=== PATIENT | female | born 1975 | race Caucasian/White ===

== ENCOUNTER → 2017-04-27 | Outpatient (CLI) | payer MEDICAID ==
--- NOTE | 2017-04-27 14:26 | RADIOLOGY REPORT (SQ) ---
EXAM DESCRIPTION: U/S EXTREMITY NONVASCULAR LTD COMPLETED DATE/TIME: 04/27/2017 1:44 pm REASON FOR STUDY: INTRA-ABD AND PELVIC SWELLING MASS AND LUMP (R19.00) R19.00 INTRA-ABD AND PELVIC SWELLING, MASS AND LUMP, UNSP SI COMPARISON: None. TECHNIQUE: Static and real time louis scale ultrasound Doppler spectral analysis, and color Doppler a cquired along the right lower quadrant anterior abdominal wall LIMITATIONS: None. FINDINGS: Patient has ecchymosis over the right lower quadrant anterior abdominal wall fat. Deep to the ecchymosis, an irregularly-shaped hypoechoic hematoma is present measuring about 4 x 1 x 2 cm in size. There is an adjacent hypoechoic lymph node of doubtful clinical significance 1.1 x 1 x 0.8 cm in size. IMPRESSION: Irregularly-shaped anterior abdominal wall right lower quadrant hematoma in the abdomina l wall fat, 4 x 1 x 2 cm in size. Incidental adjacent lymph node of doubtful clinical significance TECHNICAL DOCUMENTATION: JOB ID: [id number] [employer]- All Rights Reserved
== END ==
LOC: RAD 12:52
PROVIDERS: ATTEND Nurse Practitioner Family
DX: R19.00 Intra-abdominal and pelvic swelling, mass and lump, unspecified site (principal)
CPT/HCPCS: 76882

== ENCOUNTER 2019-02-03 08:03 | Emergency (ER) | payer MEDICAID ==
[2019-02-03] MEDS ORDERED: DEXAMETHASONE 4 MG TABLET PO ONE (09:40)
[2019-02-03] MEDS ORDERED: ONDANSETRON 4 MG TAB.RAPDIS PO ONE (09:41)
[2019-02-03] MEDS ORDERED: LIDOCAINE 2% VISCOUS SOLN 20 ML UDCUP PO ONE (09:41)
--- NOTE | 2019-02-03 09:42 | ER Document Report ---
HPI - HPI Patient complains to provider of: Sore throat Time Seen by Provider: 02/03/19 09:13 Onset/Duration: Persistent Quality of pain: Achy Pain Level: 4 Context: Patient presents complaining of sore throat for the past 5 days with subjective fever at home. Patient does complain of ear pain. Patient reports nausea and vomiting Associated Symptoms: Vomiting, Sore throat. denies: Nonproductive cough, Productive cough, Earache, Fever Exacerbated by: Denies Relieved by: Denies Similar symptoms previously: No Recently seen / treated by doctor: No - ROS ROS below otherwise negative: Yes Systems Reviewed and Negative: Yes All other systems reviewed and negative - CONSTITUTIONAL Constitutional: REPORTS: Fever - Subjective. DENIES: Chills - EENT EENT: REPORTS: Sore Throat, Ear Pain. DENIES: Eye problems - NEURO Neurology: DENIES: Headache - CARDIOVASCULAR Cardiovascular: DENIES: Chest pain - RESPIRATORY Respiratory: DENIES: Trouble Breathing, Coughing - GASTROINTESTINAL Gastrointestinal: REPORTS: Nausea, Patient vomiting. DENIES: Abdominal Pain, Diarrhea - URINARY Urinary: DENIES: Dysuria, Urgency, Frequency - REPRODUCTIVE Reproductive: DENIES: : - MUSCULOSKELETAL Musculoskeletal: DENIES: Extremity pain - DERM Skin Color: Normal Skin Problems: None Past Medical History - General Information source: Patient - Social History Smoking Status: Never Smoker Chew tobacco use (# tins/day): No Frequency of alcohol use: None Drug Abuse: None Occupation: None Family History: Reviewed & Not Pertinent Patient has suicidal ideation: No Patient has homicidal ideation: No - Medical History Medical History: Negative Renal/ Medical History: Denies: Hx Peritoneal Dialysis Past Surgical History: Reports: Hx Cholecystectomy Vertical Provider Document - CONSTITUTIONAL Agree With Documented VS: Yes Exam Limitations: No Limitations General Appearance: WD/WN, No Apparent Distress - INFECTION CONTROL TRAVEL OUTSIDE OF THE [place] IN LAST 30 DAYS: No - HEENT HEENT: Pharyngeal Exudate, Pharyngeal Tenderness, Pharyngeal Erythema - NECK Neck: Lymphadenopathy-Left, Lymphadenopathy-Right - RESPIRATORY Respiratory: Breath Sounds Normal, No Respiratory Distress - CARDIOVASCULAR Cardiovascular: Regular Rate, Regular Rhythm - GI/ABDOMEN Gastrointestinal: Abdomen Soft - BACK Back: Normal Inspection - MUSCULOSKELETAL/EXTREMETIES Musculoskeletal/Extremeties: MAEW - NEURO Level of Consciousness: Awake, Alert, Appropriate Motor/Sensory: No Motor Deficit - DERM Integumentary: Warm, Dry, No Rash Course - Vital Signs Vital signs: Temp Pulse Resp BP Pulse Ox 98.1 F 95 18 123/91 H 98 02/03/19 08:10 02/03/19 08:10 02/03/19 08:10 02/03/19 08:10 02/03/19 08:10 Discharge - Discharge Clinical Impression: Nausea, Tonsillitis Condition: Stable Disposition: HOME, SELF-CARE Instructions: Corticosteroid Medication ([facility]), Use of Orxc-Urc-Tbozucy Ibup rofen ([facility]), Nausea or Vomiting, Nonspecific ([facility]), Sore Throat ([facility]), Tonsillitis ([facility]) Additional Instructions: Return immediately for any new or worsening symptoms Followup with your primary care provider, call tomorrow to make a followup appointment Throat culture is pending, will call if you need any different treatment Prescriptions: Naproxen [Naprosyn 250 Nmg Tablet] 1 tab PO BID #14 tablet Ondansetron HCl [Zofran 4 mg Tablet] 1 - 2 tab PO Q6 PRN #15 tablet PRN Reason: Referrals: DORI WATSON CRNP [Primary Care Provider] - Follow up as needed
[2019-02-03 09:53] VITALS: BP 131/83
== END 2019-02-03 09:54 | disposition home or self-care (01) ==
LOC: ER 08:03
DX: J03.90 Acute tonsillitis, unspecified (principal); R11.0 Nausea; Z90.49 Acquired absence of other specified parts of digestive tract
CPT/HCPCS: 99283; 87070; 87880; J3490 ×2; S0119

== ENCOUNTER 2019-02-13 07:06 | Emergency (ER) | payer MEDICAID ==
[2019-02-13 07:13] VITALS: BP 155/105
== END 2019-02-13 09:02 | disposition left against medical advice (07) ==
LOC: ER 07:06
DX: R10.9 Unspecified abdominal pain (principal); Z53.21 Procedure and treatment not carried out due to patient leaving prior to being seen by health care provider

== ENCOUNTER 2019-02-13 17:20 | Emergency (ER) | payer MEDICAID ==
--- NOTE | 2019-02-13 17:30 | ER Document Report ---
ED Medical Screen (RME) - General Chief Complaint: Flank Pain Stated Complaint: FLANK PAIN Time Seen by Provider: 02/13/19 17:23 Primary Care Provider: DORI WATSON CRNP [Primary Care Provider] - Follow up as needed Mode of Arrival: Ambulatory Information source: Patient Notes: Patient presents to the emergency department with complaints of right-sided flank pain for the past 4 days. Reports she started vomiting last night. Vomited approximately 3-4 times. Complains of being nausea today. Reports history of urinary tract infections but denies pain with void urinary frequency. Denies hematuria. Denies history of kidney stones. Denies trauma. She is taken Motrin without relief of symptoms. Last dose was 10:00 this morning. Flank is tender to palpate I have greeted and performed a rapid initial assessment of this patient. A comprehensive ED assessment and evaluation of the patient, analysis of test results and completion of the medical decision making process will be conducted by additional ED providers. Dictation of this chart was performed using voice recognition software; therefore, there may be some unintended grammatical errors. TRAVEL OUTSIDE OF THE [place] IN LAST 30 DAYS: No - Related Data Allergies/Adverse Reactions: No Known Allergies Allergy (Verified 02/13/19 17:20) Past Medical History Renal/ Medical History: Denies: Hx Peritoneal Dialysis Past Surgical History: Reports: Hx Cholecystectomy Physical Exam - Vital signs Vitals: Temp Pulse Resp BP Pulse Ox 98.1 F 97 18 155/103 H 98 02/13/19 17:22 02/13/19 17:22 02/13/19 17:22 02/13/19 17:22 02/13/19 17:22 Course - Vital Signs Vital signs: Temp Pulse Resp BP Pulse Ox 98.1 F 97 18 155/103 H 98 02/13/19 17:22 02/13/19 17:22 02/13/19 17:22 02/13/19 17:22 02/13/19 17:22 Doctor's Discharge - Discharge Referrals: DORI WATSON CRNP [Primary Care Provider] - Follow up as needed
[2019-02-13 18:10] LABS: APPEARANCE,URINE CLEAR; BILIRUBIN,URINE NEGATIVE (NEGATIVE); COLOR,URINE YELLOW; GLUCOSE, URINE NEGATIVE (NEGATIVE); KETONES,URINE NEGATIVE (NEGATIVE); LEUKOCYTE ESTERASE,URINE TRACE (NEGATIVE); NITRITE,URINE NEGATIVE (NEGATIVE); PROTEIN,URINE 30 mg/dL (NEGATIVE); URINE SPECIFIC GRAVITY 1.032; UROBILINOGEN,URINE NEGATIVE mg/dL (<2.0)
[2019-02-13 18:19] LABS: ABSOLUTE BASOPHILS # (AUTO) 0.1 10^3/uL (0.0-0.2); RED CELL DISTRIBUTION WIDTH 13.5 % (11.5-14.0); TOTAL CELLS COUNTED % (AUTO) 100 %; WHITE BLOOD COUNT 18.8 10^3/uL (4.0-10.5)
[2019-02-13 18:34] VITALS: BP 153/99
[2019-02-13 18:35] LABS: ABSOLUTE EOSINOPHILS # (AUTO) 0.3 10^3/uL (0.0-0.6); ABSOLUTE LYMPHOCYTES (AUTO) 3.3 10^3/uL (0.5-4.7); ABSOLUTE MONOCYTES (AUTO) 1.7 10^3/uL (0.1-1.4); ABSOLUTE NEUT (AUTO) 13.4 10^3/uL (1.7-8.2); BASOPHILS % (AUTO) 0.7 % (0-2); EOSINOPHILS % (AUTO) 1.5 % (0-6); HEMATOCRIT 38.4 % (36.0-47.0); HEMOGLOBIN 12.8 g/dL (12.0-15.5); LYMPHOCYTES % (AUTO) 17.5 % (13-45); MEAN CORPUSCULAR HEMOGLOBIN 28.5 pg (27.0-33.4); MEAN CORPUSCULAR HGB CONC 33.4 g/dL (32.0-36.0); MEAN CORPUSCULAR VOLUME 86 fl (80-97); MONOCYTES % (AUTO) 8.9 % (3-13); PLATELET COUNT 455 10^3/uL (150-450); RED BLOOD COUNT 4.49 10^6/uL (3.72-5.28); SEGMENTED NEUTROPHILS % (AUTO) 71.4 % (42-78)
[2019-02-13 18:38] LABS: ALANINE AMINOTRANSFERASE 51 U/L (9-52); ALBUMIN 3.7 g/dL (3.5-5.0); ALKALINE PHOSPHATASE 100 U/L (38-126); ANION GAP 9 (5-19); ASPARTATE AMINO TRANSFERASE 22 U/L (14-36); BILIRUBIN,DIRECT 0.3 mg/dL (0.0-0.4); BILIRUBIN,TOTAL 0.3 mg/dL (0.2-1.3); BLOOD UREA NITROGEN 7 mg/dL (7-20); CALCIUM 9.1 mg/dL (8.4-10.2); CARBON DIOXIDE 31 mmol/L (22-30); CHLORIDE 100 mmol/L (98-107); GLUCOSE 95 mg/dL (75-110); POTASSIUM 3.7 mmol/L (3.6-5.0)
[2019-02-13] MEDS ORDERED: ONDANSETRON 4 MG TAB.RAPDIS PO ONE (18:49)
[2019-02-13] MEDS ORDERED: KETOROLAC TROMETHAMINE 60 MG/2 ML SDV IM ONE (18:49)
--- NOTE | 2019-02-13 18:53 | ER Document Report ---
ED GI/ - General Chief Complaint: Flank Pain Stated Complaint: FLANK PAIN Time Seen by Provider: 02/13/19 17:23 Primary Care Provider: DORI WATSON CRNP [Primary Care Provider] - Follow up tomorrow Mode of Arrival: Ambulatory Notes: 43-year-old female presented to ED for complaint of right sided flank pain for the past 4 days. She states she started vomiting during the middle of the night and is vomited 3-4 times in the last 24 hours. She states she is still nauseated. She states she does not have any pain with urination or any urinary frequency. She denies any blood in the urine. She denies any history of kidney stones or any trauma. She states she took Motrin about 10:00 this morning but has not taken any since then. The right flank is tender to palpation. Patient is alert oriented respirations regular and unlabored walking with a even steady gait. TRAVEL OUTSIDE OF THE [place] IN LAST 30 DAYS: No - HPI Patient complains to provider of: Flank pain, Vomiting. No: Hematuria Onset: Other Timing/Duration: Intermittent - 4 days Quality of pain: Achy, Sharp Severity at maximum: Moderate Severity in ED: Moderate Pain Level: 4 Location: Right flank Vaginal bleeding (Compared to normal period): None Associated symptoms: Nausea, Vomiting, Other - Right flank pain Exacerbated by: Supine, Movement, Walking Relieved by: Denies Similar symptoms previously: No Recently seen / treated by doctor: No - Related Data Allergies/Adverse Reactions: No Known Allergies Allergy (Verified 02/13/19 17:20) Past Medical History - General Information source: Patient - Social History Smoking Status: Never Smoker Chew tobacco use (# tins/day): No Frequency of alcohol use: None Drug Abuse: None Lives with: Family Family History: Reviewed & Not Pertinent Patient has suicidal ideation: No Patient has homicidal ideation: No - Past Medical History Cardiac Medical History: Reports: None Pulmonary Medical History: Reports: None EENT Medical History: Reports: None Neurological Medical History: Reports: None Endocrine Medical History: Reports: None Renal/ Medical History: Reports: None Malignancy Medical History: Reports: None GI Medical History: Reports: None Musculoskeletal Medical History: Reports None Skin Medical History: Reports None Psychiatric Medical History: Reports: None Traumatic Medical History: Reports: None Infectious Medical History: Reports: None Past Surgical History: Reports: Hx Cholecystectomy Review of Systems - Review of Systems Constitutional: No symptoms reported EENT: No symptoms reported Cardiovascular: No symptoms reported Respiratory: No symptoms reported Gastrointestinal: Nausea, Vomiting Genitourinary: Flank pain Female Genitourinary: No symptoms reported Musculoskeletal: No symptoms reported Skin: No symptoms reported Hematologic/Lymphatic: No symptoms reported Neurological/Psychological: No symptoms reported -: Yes All other systems reviewed and negative Physical Exam - Vital signs Vitals: Temp Pulse Resp BP Pulse Ox 98.1 F 97 18 155/103 H 98 02/13/19 17:22 02/13/19 17:22 02/13/19 17:22 02/13/19 17:22 02/13/19 17:22 Interpretation: Normal - General General appearance: Appears well, Alert - HEENT Head: Normocephalic, Atraumatic Eyes: Normal Pupils: PERRL - Respiratory Respiratory status: No respiratory distress Chest status: Nontender Breath sounds: Normal Chest palpation: Normal - Cardiovascular Rhythm: Regular Heart sounds: Normal auscultation Murmur: No - Abdominal Inspection: Normal Distension: No distension Bowel sounds: Normal Tenderness: Nontender Organomegaly: No organomegaly - Back Back: Normal, Tender, CVA tenderness - right. No: Deformity/step-off, Vertebra tenderness, Scars, Scoliosis, Wounds - Extremities General upper extremity: Normal inspection, Nontender, Normal color, Normal ROM, Normal temperature General lower extremity: Normal inspection, Nontender, Normal color, Normal ROM, Normal temperature, Normal weight bearing. No: Abi's sign - Neurological Neuro grossly intact: Yes Cognition: Normal Orientation: AAOx4 Barry Coma Scale Eye Opening: Spontaneous Barry Coma Scale Verbal: Oriented Barry Coma Scale Motor: Obeys Commands Halley Coma Scale Total: 15 Speech: Normal Motor strength normal: LUE, RUE, LLE, RLE Sensory: Normal - Psychological Associated symptoms: Normal affect, Normal mood - Skin Skin Temperature: Warm Skin Moisture: Dry Skin Color: Normal Course - Re-evaluation Re-evalutation: 02/13/19 19:[address] and labs with patient reports given to patient. Patient was discharged home with nausea medicine as well muscle relaxers. Patient to take ibuprofen as needed for pain. Patient to follow-up with her primary doctor. These were all discussed with patient. Patient verbalized understanding and agreement with treatment plan. Patient also given instructions on back exercises warm packs and ice packs. - Vital Signs Vital signs: Temp Pulse Resp BP Pulse Ox 98.2 F 96 18 153/99 H 98 02/13/19 18:31 02/13/19 18:31 02/13/19 18:31 02/13/19 18:31 02/13/19 18:31 - Laboratory Result Diagrams: 02/13/19 17:45 02/13/19 17:45 Laboratory results interpreted by me: 02/13/19 02/13/19 02/13/19 17:45 17:45 17:45 WBC 18.8 H Plt Count 455 H Absolute Neutrophils 13.4 H Absolute Monocytes 1.7 H Carbon Dioxide 31 H Urine Protein 30 H Ur Leukocyte Esterase TRACE H Urine Ascorbic Acid 20 H - Diagnostic Test Radiology reviewed: Image reviewed, Reports reviewed Discharge - Discharge Clinical Impression: Right flank pain, kidney stone no hydronephrosis Condition: Stable Disposition: HOME, SELF-CARE Additional Instructions: Flank Pain We weren't able to prove an exact cause for your flank pain. Pain in the flank can be caused by a muscle strain or spasm. Sometimes a kidney stone causes pain, but can't be found on our tests. Infection in the kidney should be evident on a urine test. Early shingles can occasionally cause flank pain, without the rash that proves the diagnosis. On rare occasions, disease of the pancreas, aorta, spleen, or colon can create pain in the flank. At this time, there's no evidence of a dangerous condition, and it seems safe for you to be at home. If the pain goes away and does not come back, no further testing will be needed. If pain persists, or becomes more severe, we may need to repeat some tests or order additional new testing. Blood in the urine, urgency to urinate frequently, and pain that radiates to the groin can indicate a kidney stone. Fever may mean that the pain is due to infection, either of the kidney or the colon (diverticulitis). If your pain is early shingles, you should develop an eruption of blisters in the painful area within a few days. Call the doctor or return if you have pain that is spreading or becoming more severe, pain that does not resolve with time, fever, or any other new symptoms. Toradol Injection You have been given an injection of ketorolac tromethamine (Toradol). This is an excellent, safe drug for pain control. It also has potent antiinflammatory action. You should have significant pain relief within about one hour. Toradol is not addicting and is non-sedating. It does not interfere with driving or work. Call or return if you develop itching, hives, shortness of breath, or rash. MUSCLE RELAXERS: Muscle relaxing medications are usually prescribed for acute muscle spasm or injury to the neck and back. They are often combined with antiinflammatory pain medication for increased relief. You may stop the muscle relaxer when the pain and stiffness have improved. Start the medication again if spasms recur. Muscle relaxers may cause drowsiness, especially with the first dose. Do not operate machinery or drive while under the effects of the medication. Most muscle relaxers last up to 24 hours. Do not combine the medication with alcohol. ICE PACKS: Apply ice packs frequently against the painful area. Many different schedules are recommended, such as "20 minutes on, 20 minutes off" or "one hour ice, two hours rest." If you need to work, you may need to go longer between ice treatments. You should plan to have the area ice packed AT LEAST one fourth of the time. The ice should be applied over the wrap, tape, or splint, or over a layer of cloth -- not directly against the skin. Some ice bags have a built-in cloth and can be put directly on the skin. WARM PACKS: After approximately two days, apply gentle heat (such as a heating pad or hot water bottle) for about 20 to 30 minutes about every two hours -- at least four times daily. Warmth and elevation will help you make a more rapid recovery, and will ease the pain considerably. Do not use HOT heat, and never apply heat for longer than 30 minutes. The continuous heat can invisibly damage skin and muscles -- even when no burn is seen on the surface. Damaged muscles can make you MORE sore. Stretching Exercises for the Back The physician has recommended that you begin stretching exercises for your back. These are often used even while the back is painful. However, you should notify the physician if the activities seem to increase your pain. PELVIC TILT: Lie flat on your back with knees bent. Tighten your stomach and buttock muscles so it flattens your lower back against the floor. Hold 10 seconds. Repeat 10 times, twice daily. KNEE RAISE: Lying on the back with knees bent, raise one knee to your chest, then the other. Hold both knees against the chest 10 seconds, then lower one knee at a time. Repeat 10 times, twice daily. PARTIAL TRUNK RAISE: Lie face down, arms at your sides. Keeping your w aist on the floor, use your arms raise your chest up. Support yourself on your elbows for 30 seconds. Repeat twice daily, increasing the time to two minutes as you recover. FOLLOW-UP CARE: If you have been referred to a physician for follow-up care, call the physicians office for an appointment as you were instructed or within the next two days. If you experience worsening or a significant change in your symptoms, notify the physician immediately or return to the Emergency Department at any time for re-evaluation. Prescriptions: Methocarbamol [Robaxin 500 mg Tablet] 500 mg PO BID #30 tablet Ondansetron [Zofran Odt 4 mg Tablet] 1 tab PO Q6H #10 tab.rapdis Forms: Elevated Blood Pressure Referrals: DORI WATSON CRNP [Primary Care Provider] - Follow up tomorrow
--- NOTE | 2019-02-13 19:08 | RADIOLOGY REPORT (SQ) ---
EXAM DESCRIPTION: CT ABD/PELVIS NO ORAL OR IV COMPLETED DATE/TIME: 02/13/2019 6:57 pm REASON FOR STUDY: right flank pain COMPARISON: None. TECHNIQUE: CT scan of the abdomen and pelvis performed without intravenous or oral contrast. Images reviewed with lung, soft tissue, and bone windows. Reconstructed coronal and sagittal MPR images revi ewed. All images stored on PACS. All CT scanners at this facility use dose modulation, iterative reconstruction, and/or weight based d osing when appropriate to reduce radiation dose to as low as reasonably achievable (ALARA). [facility]: Dose Right [facility]: CareDose [facility]: Dose Right [facility]: Teradose 4D [facility]: Smart Apsmart RADIATION DOSE: CT Rad equipment meets quality standard of care and radiation dose reduction techniq ues were employed. CTDIvol: 9.8 mGy. DLP: 558 mGy-cm.mGy. LIMITATIONS: None. FINDINGS: LOWER CHEST: No significant findings. No nodules or infiltrates. NON-CONTRASTED LIVER, SPLEEN, ADRENALS: Evaluation limited by lack of IV contrast. No identified sign ificant masses. PANCREAS: No masses. No peripancreatic inflammatory changes. GALLBLADDER: No identified stones by CT criteria. No inflammatory changes to suggest cholecystitis. RIGHT KIDNEY AND URETER: No suspicious masses. Assessment limited by lack of IV contrast. Tiny nono bstructing intrarenal calculi. No ureteral stone or obstruction. No hydronephrosis or hydroureter. LEFT KIDNEY AND URETER: No suspicious masses. Assessment limited by lack of IV contrast. Tiny nonob structing intrarenal calculi. No hydronephrosis or hydroureter. AORTA AND RETROPERITONEUM: No aneurysm. No retroperitoneal masses or adenopathy. BOWEL AND PERITONEAL CAVITY: No obvious masses or inflammatory changes. No free fluid. APPENDIX: Normal. PELVIS, BLADDER, AND ABDOMINAL WALL:No abnormal masses. No free fluid. Bladder normal. BONES: No significant findings. OTHER: No other significant finding. IMPRESSION: There are few tiny nonobstructing intrarenal calculi. There is no ureteral stone or obs truction. The appendix appears to be normal. COMMENT: Quality ID # [id number]: Final reports with documentation of one or more dose reduction techniques (e.g., Automated exposure control, adjustment of the mA and/or kV according to patient size, use of iterative reconstruction technique) TECHNICAL DOCUMENTATION: JOB ID: [id number] [employer]- All Rights Reserved Reading location - IP/workstation name: [email or web address]
[2019-02-13] MEDS ORDERED: METHOCARBAMOL 500 MG TABLET PO ONE (19:23)
== END 2019-02-13 19:34 | disposition home or self-care (01) ==
LOC: ER 17:20
DX: R10.9 Unspecified abdominal pain (principal); Z90.49 Acquired absence of other specified parts of digestive tract; R40.2412 Glasgow coma scale score 13-15, at arrival to emergency department
CPT/HCPCS: 99284; 96372; 36415; 85025; 81025; 80053; 81001; 74176; J1885; S0119; J3490